=== PATIENT | male | born 1995 | race Caucasian/White ===

== ENCOUNTER 2018-08-08 00:45 | Emergency (ER) | payer OTHER ==
[2018-08-08] MEDS ORDERED: LIDOCAINE 1% W/EPI 1:100,000 MDV 50 ML VIAL ONE (01:07)
[2018-08-08] MEDS ORDERED: CEPHALEXIN 250 MG CAP ONE (01:07)
--- NOTE | 2018-08-08 01:40 | EDPHYS ---
Physician Documentation [facility] Name: Papa Gordon Age: 22 yrs Sex: Male : 1995 Arrival Date: 08/08/2018 Time: 00:48 Bed 2 Private MD: ED Physician Nilay Scott HPI: 08/08 00:54 This 22 yrs old Male presents to ER via Law Enforcement with complaints of jf Laceration To Scalp/Face. 00:54 The patient has a laceration related to: head caught in door. The laceration(s) is(are) jf located on the left ear. Onset: The symptoms/episode began/occurred just prior to arrival. Associated signs and symptoms: The patient has no apparent associated signs or symptoms. The patient has not experienced similar symptoms in the past. Historical: - Allergies: 00:55 No Known Allergies; ao - Home Meds: 00:55 None [Active]; ao - PMHx: 00:55 None; ao - PSHx: 00:55 None; ao - Immunization history:: Adult Immunizations up to date. - Social history:: Smoking status: Patient/guardian denies using tobacco, Patient/guardian denies using alcohol, street drugs. - Family history:: not pertinent. - Ebola Screening: : Patient negative for fever greater than or equal to 101.5 degrees Fahrenheit, and additional compatible Ebola Virus Disease symptoms Patient denies exposure to infectious person Patient denies travel to an Ebola-affected area in the 21 days before illness onset. ROS: 00:55 Constitutional: Negative for fever, chills, and weight loss, Eyes: Negative for injury, jf pain, redness, and discharge, ENT: Negative for injury, pain, and discharge, Neck: Negative for injury, pain, and swelling, Cardiovascular: Negative for chest pain, palpitations, and edema, Respiratory: Negative for shortness of breath, cough, wheezing, and pleuritic chest pain, Abdomen/GI: Negative for abdominal pain, nausea, vomiting, diarrhea, and constipation, Back: Negative for injury and pain, : Negative for injury, bleeding, discharge, and swelling, MS/Extremity: Negative for injury and deformity, Neuro: Negative for headache, weakness, numbness, tingling, and seizure, Psych: Negative for depression, anxiety, suicide ideation, homicidal ideation, and hallucinations, Allergy/Immunology: Negative for hives, rash, and allergies, Endocrine: Negative for neck swelling, polydipsia, polyuria, polyphagia, and marked weight changes. 00:55 Skin: Positive for laceration(s). Exam: 00:55 Constitutional: This is a well developed, well nourished patient who is awake, alert, jf and in no acute distress. Eyes: Pupils equal round and reactive to light, extra-ocular motions intact. Lids and lashes normal. Conjunctiva and sclera are non-icteric and not injected. Cornea within normal limits. Periorbital areas with no swelling, redness, or edema. ENT: Nares patent. No nasal discharge, no septal abnormalities noted. Tympanic membranes are normal and external auditory canals are clear. Oropharynx with no redness, swelling, or masses, exudates, or evidence of obstruction, uvula midline. Mucous membranes moist. Neck: Trachea midline, no thyromegaly or masses palpated, and no cervical lymphadenopathy. Supple, full range of motion without nuchal rigidity, or vertebral point tenderness. No Meningismus. Chest/axilla: Normal chest wall appearance and motion. Nontender with no deformity. No lesions are appreciated. Cardiovascular: Regular rate and rhythm with a normal S1 and S2. No gallops, murmurs, or rubs. Normal PMI, no JVD. No pulse deficits. Respiratory: Lungs have equal breath sounds bilaterally, clear to auscultation and percussion. No rales, rhonchi or wheezes noted. No increased work of breathing, no retractions or nasal flaring. Abdomen/GI: Soft, non-tender, with normal bowel sounds. No distension or tympany. No guarding or rebound. No evidence of tenderness throughout. Back: No spinal tenderness. No costovertebral tenderness. Full range of motion. Skin: Warm, dry with normal turgor. Normal color with no rashes, no lesions, and no evidence of cellulitis. MS/ Extremity: Pulses equal, no cyanosis. Neurovascular intact. Full, normal range of motion. Neuro: Awake and alert, GCS 15, oriented to person, place, time, and situation. Cranial nerves II-XII grossly intact. Motor strength 5/5 in all extremities. Sensory grossly intact. Cerebellar exam normal. Normal gait. Psych: Awake, alert, with orientation to person, place and time. Behavior, mood, and affect are within normal limits. 00:55 Head/face: Noted is a laceration(s), that is jagged, 3 cm(s), swelling, tenderness, that is mild, of the left ear. Vital Signs: 00:54 BP 122 / 79; Pulse 87; Resp 18; Temp 97.5(O); Pulse Ox 100% on R/A; Weight 73.48 kg; ao Height 5 ft. 5 in. (165.10 cm) (M); Pain 8/10; 01:46 BP 129 / 94; Pulse 70; Resp 18; Temp 97.5; Pulse Ox 98% on R/A; ak1 00:54 Body Mass Index 26.96 (73.48 kg, 165.10 cm) ao Laceration: 00:58 Wound Repair of 3cm ( 1.2in ) subcutaneous laceration to face and left ear. Irregularly jf shaped.. Distal neuro/vascular/tendon intact. Anesthesia: Local anesthetic administered with 6 mls of 1% lidocaine w/ Epi. Wound prep: Simple cleansing by me. Skin closed with 4 5-0 Prolene using interrupted sutures and sterile technique. Dressed with Neosporin. Patient tolerated well. MDM: 00:50 Patient medically screened. [facility] 00:55 Data reviewed: vital signs, nurses notes, lab test result(s). [facility] 08/08 00:52 Order name: Prolene, Sutures; Complete Time: 00:54 [facility] 08/08 00:52 Order name: Dressing - Wound; Complete Time: 01:45 [facility] 08/08 00:52 Order name: Gloves, Sterile; Complete Time: 01:00 [facility] 08/08 00:52 Order name: Setup Suture Tray; Complete Time: 01:00 jf Administered Medications: 01:00 Drug: Lidocaine-Epinephrine -1%: (1:100,000) 5 ml {Note: placed at bedside for ERP ak1 use.} Volume: 20 ml; Route: Infiltration; 01:00 Drug: KeFLEX 500 mg Route: PO; ak1 01:45 Follow up: Response: No adverse reaction ak1 01:47 Drug: HYDROcodone-acetaminophen 5 mg-325 mg 1 tabs Route: PO; ao 01:54 Follow up: Response: No adverse reaction ao 01:48 Drug: Ibuprofen 800 mg Route: PO; ao 01:53 Follow up: Response: No adverse reaction ao Disposition: 08/08/18 01:39 Discharged to Home. Impression: Laceration without foreign body of other part of head. - Condition is Stable. - Discharge Instructions: Facial Laceration, Facial Laceration, [id number]. - Prescriptions for Keflex 500 mg Oral Capsule - take 1 capsule by ORAL route every 6 hours for 10 days; 28 capsule. Ibuprofen 800 mg Oral Tablet - take 1 tablet by ORAL route every 8 hours As needed take with food; 30 tablet. - Medication Reconciliation Form, Thank You Letter, Antibiotic Education, Prescription Opioid Use form. - Follow up: Private Physician; When: 5 - 6 days; Reason: Recheck today's complaints, Continuance of care, Re-evaluation by your physician. - Problem is new. - Symptoms have improved. Signatures: Nilay Scott MD MD cha Krenek, Amber RN RN ak1 Nilay Menjivar PA PA cp Justin Mcguire RN RN ao Corrections: (The following items were deleted from the chart) 01:58 01:39 08/08/2018 01:39 Discharged to Home. Impression: Laceration without foreign body ao of other part of head. Condition is Stable. Discharge Instructions: Facial Laceration, Facial Laceration, [id number]. Prescriptions for Keflex 500 mg Oral Capsule - take 1 capsule by ORAL route every 6 hours for 10 days; 28 capsule, Ibuprofen 800 mg Oral Tablet - take 1 tablet by ORAL route every 8 hours As needed take with food; 30 tablet. and Forms are Medication Reconciliation Form, Thank You Letter, Antibiotic Education, Prescription Opioid Use. Follow up: Private Physician; When: 5 - 6 days; Reason: Recheck today's complaints, Continuance of care, Re-evaluation by your physician. Problem is new. Symptoms have improved. cp
--- NOTE | 2018-08-08 01:40 | ER ---
Nurse's Notes [facility] Name: Papa Gordon Age: 22 yrs Sex: Male : 1995 Arrival Date: 08/08/2018 Time: 00:48 Bed 2 Private MD: Diagnosis: Laceration without foreign body of other part of head Presentation: 08/08 00:48 Presenting complaint: Patient states: Inmate got in between a closing gate and push on ao his head. A laceration on the side of the head was noted. Bleeding was controlled. Patient report jaw pain since he got his jaw injured. Transition of care: patient was not received from another setting of care. Complicating Factors: There are no complicating factors for this patient. Onset of symptoms is unknown. Risk Assessment: Do you want to hurt yourself or someone else? Patient reports no desire to harm self or others. Initial Sepsis Screen: Does the patient meet any 2 criteria? No. Patient's initial sepsis screen is negative. Does the patient have a suspected source of infection? No. Patient's initial sepsis screen is negative. Care prior to arrival: None. 00:48 Method Of Arrival: Law Enforcement: [place] [employer] ao 00:48 Acuity: [place] 4 ao Historical: - Allergies: 00:55 No Known Allergies; ao - Home Meds: 00:55 None [Active]; ao - PMHx: 00:55 None; ao - PSHx: 00:55 None; ao - Immunization history:: Adult Immunizations up to date. - Social history:: Smoking status: Patient/guardian denies using tobacco, Patient/guardian denies using alcohol, street drugs. - Family history:: not pertinent. - Ebola Screening: : Patient negative for fever greater than or equal to 101.5 degrees Fahrenheit, and additional compatible Ebola Virus Disease symptoms Patient denies exposure to infectious person Patient denies travel to an Ebola-affected area in the 21 days before illness onset. Screenin:56 Abuse screen: Denies threats or abuse. Denies injuries from another. Nutritional ao screening: No deficits noted. Tuberculosis screening: No symptoms or risk factors identified. Fall Risk None identified. Assessment: 00:56 General: Appears in no apparent distress. comfortable, Behavior is calm, cooperative, ao appropriate for age. Pain: Complains of pain in left ear. Neuro: Level of Consciousness is awake, alert, obeys commands, Oriented to person, place, time, situation, Appropriate for age Moves all extremities. Full function Speech is normal, Facial symmetry appears normal, Intact. Cardiovascular: Capillary refill < 3 seconds Patient's skin is warm and dry. Respiratory: Airway is patent Respiratory effort is even, unlabored, Respiratory pattern is regular, symmetrical. GI: No signs and/or symptoms were reported involving the gastrointestinal system. : No signs and/or symptoms were reported regarding the genitourinary system. EENT: Laceration to the left side of the face. Derm: Laceration to the left side of the face. Musculoskeletal: No signs and/or symptoms reported regarding the musculoskeletal system. Circulation, motion, and sensation intact. Range of motion: intact in all extremities. Injury Description: Laceration sustained to left ear is clean, 0.5 to 2.5 cm long, not bleeding, was sustained 30-60 minutes ago. is bleeding a small amount. 01:55 Reassessment: DC instructions given to patient and law officer. Officers agree to take ao DC paper and prescription to a nurse and to have patient follow up. Vital Signs: 00:54 BP 122 / 79; Pulse 87; Resp 18; Temp 97.5(O); Pulse Ox 100% on R/A; Weight 73.48 kg; ao Height 5 ft. 5 in. (165.10 cm) (M); Pain 8/10; 01:46 BP 129 / 94; Pulse 70; Resp 18; Temp 97.5; Pulse Ox 98% on R/A; ak1 00:54 Body Mass Index 26.96 (73.48 kg, 165.10 cm) ao ED Course: 00:48 Patient arrived in ED. ao 00:50 Nilay Scott MD is Attending Physician. fj 00:53 Triage completed. ao 00:56 Arm band placed on right wrist. ao 01:00 Patient has correct armband on for positive identification. Pulse ox on. NIBP on. ao 01:43 Justin Mcguire, RN is Primary Nurse. ao 01:46 No provider procedures requiring assistance completed. Patient did not have IV access ak1 during this emergency room visit. Administered Medications: 01:00 Drug: Lidocaine-Epinephrine -1%: (1:100,000) 5 ml {Note: placed at bedside for ERP ak1 use.} Volume: 20 ml; Route: Infiltration; 01:00 Drug: KeFLEX 500 mg Route: PO; ak1 01:45 Follow up: Response: No adverse reaction ak1 01:47 Drug: HYDROcodone-acetaminophen 5 mg-325 mg 1 tabs Route: PO; ao 01:54 Follow up: Response: No adverse reaction ao 01:48 Drug: Ibuprofen 800 mg Route: PO; ao 01:53 Follow up: Response: No adverse reaction ao Outcome: 01:39 Discharge ordered by . talat 01:54 Discharged to home ambulatory. ao 01:54 Condition: stable 01:54 Discharge instructions given to patient, Instructed on discharge instructions, follow up and referral plans. Demonstrated understanding of instructions, follow-up care, Prescriptions given X 2. 01:58 Patient left the ED. ao Signatures: Nilay Scott MD MD cha Krenek, Amber RN RN ak1 Nilay Menjivar PA PA cp Ortiz, Alex RN RN ao
[2018-08-08] MEDS ORDERED: IBUPROFEN 400 MG TAB ONE (01:57)
[2018-08-08] MEDS ORDERED: HYDROCODONE/APAP 5/325 MG TAB ONE (01:58)
== END 2018-08-08 01:58 | disposition home or self-care (01) ==
LOC: ER 00:45
PROC: 0HQ3XZZ Repair Left Ear Skin, External Approach (ICD-10-PCS; principal; 2018-08-08)
PROC: 0JQ10ZZ Repair Face Subcutaneous Tissue and Fascia, Open Approach (ICD-10-PCS; 2018-08-08)
DX: S01.312A Laceration without foreign body of left ear, initial encounter (principal)
CPT/HCPCS: 99283